=== PATIENT | male | born 1975 | race Two or more races ===

== ENCOUNTER 2019-07-19 02:51 | Emergency (ER) | payer SELFPAY ==
[~2019-07-19] VITALS: Ht 172.7 cm; Wt 68.0 kg
[2019-07-19 03:00] VITALS: BP 149/109
[2019-07-19] MEDS ORDERED: HYDROcodone/Acetamin 5/325 tab ORAL ONE (03:00)
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
[2019-07-19] MEDS ORDERED: Surgicel 4in x 8in TOPIC ONE (05:30)
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
[2019-07-19] MEDS ORDERED: IBUPROFEN600 MG ORAL (05:51)
[2019-07-19] MEDS ORDERED: HYDROCODON-ACE1 EA15 ORAL (05:51)
[2019-07-19 06:10] VITALS: BP 135/98
== END 2019-07-19 06:10 | disposition home or self-care (01) ==
LOC: EDBD 02:51 → EMR 03:08
DX: S09.90XA Unspecified injury of head, initial encounter (principal); S02.2XXA Fracture of nasal bones, initial encounter for closed fracture; Y04.2XXA Assault by strike against or bumped into by another person, initial encounter; Y92.9 Unspecified place or not applicable
CPT/HCPCS: 70450; 70486; 99284